=== PATIENT | male | born 1980 | race Caucasian/White ===

== ENCOUNTER 2022-01-14 13:05 | Emergency (ER) | payer OTHER ==
[~2022-01-14 13:05] MED LIST: ALLEGRA ALLERG180 MG PO; CLARITIN10 MG PO; FLONASE 0.05% N16 GM; IBUPROFEN600 MG PO; MOBIC15 MG PO; OMNICEF 300 MG300 MG PO
[2022-01-14] MEDS ORDERED: TINACTIN30 GM TP (14:43)
[2022-01-14] MEDS ORDERED: FLONASE 0.05% N16 GM (14:43)
== END 2022-01-14 15:05 | disposition home or self-care (01) ==
LOC: ER1 13:05
DX: B35.3 Tinea pedis (principal); J31.0 Chronic rhinitis
CPT/HCPCS: 99282